=== PATIENT | female | born 1995 | race Caucasian/White ===

== ENCOUNTER → 2022-10-24 | Day surgery (SDC) | payer OTHER | END | disposition home or self-care (01) | LOC: JRADIR 12:40 | PROVIDERS: ATTEND Orthopaedic Surgery Sports Medicine | PROC: BQ30YZZ Magnetic Resonance Imaging (MRI) of Right Hip using Other Contrast (ICD-10-PCS; principal; 2022-10-24) | DX: M25.551 Pain in right hip (principal) | CPT/HCPCS: 27093; 27095; 73525-TC-FY; 73722-TC; 77002-TC-FY; 84703 ==